=== PATIENT | male | born 2000 | race Caucasian/White ===

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

== ENCOUNTER 2018-06-04 09:47 | Emergency (ER) | payer MEDICAID ==
[~2018-06-04] VITALS: Ht 180.3 cm; Wt 77.3 kg
[~2018-06-04 09:47] MED LIST: ABIL5TAB PO; BENA25CA4 PO; CEPH500C PO; CONC54TA2 PO; GUANFACINE PO; KEFL500C17 PO; NORCOTAB PO; PRED10TA2 PO
[2018-06-04 09:48] VITALS: BP 126/87
[2018-06-04] MEDS ORDERED: LIDOCAINE 2% W/EPIN INJ 20ML **PRES FREE INJ ONE (10:15)
[2018-06-04] MEDS ORDERED: BACTRIM 160MG/800MG DS TAB PO ONE (10:30)
[2018-06-04] MEDS ORDERED: IBUPROFEN 800 MG TAB PO ONE (10:30)
[2018-06-04] MEDS ORDERED: BACT800T5 PO (10:32)
[2018-06-04] MEDS ORDERED: IBUP80TA PO (10:32)
== END 2018-06-04 10:45 | disposition home or self-care (01) ==
LOC: M ED 09:47
DX: L03.114 Cellulitis of left upper limb (principal); J45.909 Unspecified asthma, uncomplicated; F90.9 Attention-deficit hyperactivity disorder, unspecified type; F17.210 Nicotine dependence, cigarettes, uncomplicated

== ENCOUNTER 2018-06-05 21:15 | Emergency (ER) | payer MEDICAID ==
[~2018-06-05] VITALS: Ht 180.3 cm; Wt 77.3 kg
[~2018-06-05 21:15] MED LIST changes: +BACT800T5 PO; +IBUP80TA PO
[2018-06-05 21:16] VITALS: BP 136/61
[2018-06-05] MEDS ORDERED: CLINDAMYCIN 300 MG in APPROPRIATE DILUENT 1 EA IV ONE (23:45)
[2018-06-06 01:00] LABS: HEMATOCRIT 43.1 % (42.0-52.0); HEMOGLOBIN 14.2 g/dl (13.5-17.5); MEAN CORPUSCULAR VOLUME 87.2 fl (80.0-96.0); RED BLOOD COUNT 4.94 10^6/uL (4.30-6.10); WHITE BLOOD COUNT 10.1 10^3/uL (4.0-10.0)
[2018-06-06 01:01] LABS: BASO # 0.1 10^3/uL (0.0-0.2); BASO % 0.6 % (0.0-1.0); EOS # 0.2 10^3/uL (0.0-0.50); EOS % 2.4 % (0.0-3.0); LYMPH # 2.2 10^3/uL (1.5-6.5); LYMPH % 22.2 % (24.0-44.0); MEAN CORPUSCULAR HEMOGLOBIN 28.7 pg (27.0-33.0); MEAN CORPUSCULAR HGB CONC 32.9 g/dl (32.0-36.5); MONO # 0.7 10^3/uL (0.0-0.8); MONO % 7.2 % (0.0-5.0); NEUTROPHILS # 6.8 10^3/uL (1.8-7.7); NEUTROPHILS % 67.2 % (36.0-66.0); PLATELET COUNT, AUTOMATED 252 10^3/uL (150-450)
[2018-06-06 01:04] LABS: BLOOD UREA NITROGEN 9 MG/DL (7-18); CREATININE FOR GFR 0.87 MG/DL (0.70-1.30); GLUCOSE, FASTING 104 MG/DL (70-100)
[2018-06-06 01:05] LABS: ALBUMIN 3.5 GM/DL (3.2-5.2); ALT/SGPT 14 U/L (12-78); BILIRUBIN,DIRECT 0.1 MG/DL (0.0-0.2); BILIRUBIN,TOTAL 0.3 MG/DL (0.2-1.0); CALCIUM LEVEL 8.7 MG/DL (8.5-10.1); CARBON DIOXIDE LEVEL 32 MEQ/L (21-32); CHLORIDE LEVEL 102 MEQ/L (98-107); POTASSIUM SERUM 3.9 MEQ/L (3.5-5.1); SODIUM LEVEL 139 MEQ/L (136-145); TOTAL PROTEIN 7.2 GM/DL (6.4-8.2)
[2018-06-06] MEDS ORDERED: BACT800T5 PO (02:05)
[2018-06-06] MEDS ORDERED: BACTRIM 160MG/800MG DS TAB PO ONE (02:15)
--- NOTE | 2018-06-06 08:28 | REP ---
Left upper extremity deep vein duplex ultrasound: The deep veins demonstrate normal compression, normal Doppler color flow and normal Doppler waveforms with respiration and augmentation from the brachial veins to the jugular vein. Impression: There is no left upper extremity deep vein thrombus. Electronically Signed by Miki Domínguez MD 06/06/2018 08:19 A
== END 2018-06-06 02:20 | disposition home or self-care (01) ==
LOC: M ED 21:15
DX: L03.114 Cellulitis of left upper limb (principal); F19.10 Other psychoactive substance abuse, uncomplicated; J45.909 Unspecified asthma, uncomplicated; R51 Headache; F32.9 Major depressive disorder, single episode, unspecified; F17.210 Nicotine dependence, cigarettes, uncomplicated; Z79.2 Long term (current) use of antibiotics